=== PATIENT | female | born 1970 | race Caucasian/White ===

== ENCOUNTER 2024-07-09 09:56 | Outpatient (CLI) | payer OTHER | END 2024-07-09 09:57 | disposition home or self-care (01) | LOC: ULT 09:56 | PROVIDERS: ATTEND Nurse Practitioner Family | DX: E10.9 Type 1 diabetes mellitus without complications (principal); R10.9 Unspecified abdominal pain; Z90.49 Acquired absence of other specified parts of digestive tract | CPT/HCPCS: 76705 ==